=== PATIENT | female | born 1975 | race American Indian/Alaskan Native ===

== ENCOUNTER 2017-06-03 06:38 | Day surgery (SDC) | payer OTHER ==
[2017-06-03 07:04] VITALS: O2SAT 100
[2017-06-03] MEDS ORDERED: Lactated Ringer's 500 ML IV SCH (08:00)
[2017-06-03] MEDS ORDERED: Lidocaine Hydrochloride 5 ML INJ ONE (10:08)
[2017-06-03] MEDS ORDERED: Propofol 10 mg/ml Inj (20 ML) ONE ×2 (10:08→10:25)
[2017-06-03] MEDS ORDERED: Lactated Ringer's 1,000 ML IV ONE (10:15)
--- NOTE | 2017-06-03 10:15 | CP.SDSHP ---
Same Day Surgery H & P - History Proposed Procedure: COLONSCOPY Pre-Op Diagnosis: SEE NOTES - Previous Medical/Surgical History Misc: Other Pain: 4.Moderate Pain - Allergies Allergies: Allergies Penicillins Allergy (Verified 06/03/17 07:00) RASH - Physical Exam General Appearance: N Vital Signs: Vital Signs 06/03/17 06:55 Temperature 97.4 F L Pulse Rate 60 Respiratory 19 Rate Blood Pressure 109/67 O2 Sat by Pulse 100 Oximetry Mental Status: Alert & Oriented x3 Neuro: WNL Heart: WNL Lungs: WNL GI: Other - {Optional Preform as Required} Breast: WNL Abdomen: Other Rectal: Other Integument: WNL : WNL Ortho: WNL ENT: WNL - Impression Pt. Evaluated Today:Candidate for Anesthesia & Procedure: Yes - Date & Time Time: 10:15 Short Stay Discharge - Short Stay Discharge Admitting Diagnosis/Reason for Visit: DIARRHEA Disposition: HOME/ ROUTINE
[2017-06-03] MEDS ORDERED: Glucagon Recombinant 1 mg Inj ONE (10:35)
[2017-06-03] MEDS ORDERED: Pantoprazole 40 mg EC Tab PO ONE (10:55)
[2017-06-03] MEDS ORDERED: Belladonna-Phenobarbital PO ONE (11:10)
[2017-06-03 13:59] VITALS: BP 111/63; PULSE 61; RESP 19; TEMP 98.1
== END 2017-06-03 12:05 | disposition home or self-care (01) ==
LOC: C.ENDO 06:38
PROVIDERS: ATTEND Specialist
DX: K58.0 Irritable bowel syndrome with diarrhea (principal); K57.30 Diverticulosis of large intestine without perforation or abscess without bleeding; D12.4 Benign neoplasm of descending colon; K64.8 Other hemorrhoids; K64.4 Residual hemorrhoidal skin tags
CPT/HCPCS: 45385; 84703; 88305; J1610; J2704; J7120